=== PATIENT | male | born 1990 | race Caucasian/White ===

== ENCOUNTER 2020-07-21 20:23 | Emergency (ER) | payer SELFPAY ==
[~2020-07-21] VITALS: Ht 170.2 cm; Wt 78.0 kg
[2020-07-21] MEDS ORDERED: SODIUM CHLORIDE 0.9% 1,000 ML IV ONE (21:45)
[2020-07-21] MEDS ORDERED: LORAZEPAM 2MG/ML CPJ IV ONE (21:45)
[2020-07-21] MEDS ORDERED: HALOPERIDOL LACTATE 5MG/ML VIAL IM ONE (22:45)
[2020-07-21] MEDS ORDERED: DIPHENHYDRAMINE 50MG/ML VIAL IM PRN (22:45)
[2020-07-22] VITALS: BP 140/72
[2020-07-22 00:37] LABS: CLARITY URINE CLEAR (CLEAR); COLOR URINE YELLOW (YELLOW); KETONES URINE NEGATIVE (NEGATIVE); LEUKOCYTE ESTERASE URINE 1+ (NEGATIVE); NITRITE URINE POSITIVE (NEGATIVE); OCCULT BLOOD URINE TRACE (NEGATIVE); PH URINE 5.5 (4.5-8.0); PROTEIN URINE TRACE (NEGATIVE); SPECIFIC GRAVITY URINE 1.016 (1.005-1.030); UROBILINOGEN URINE 0.2 E.U./dL (0.2-1.0)
[2020-07-22 00:49] LABS: *COCAINE SCREEN URINE NEGATIVE (NEGATIVE); METHADONE URINE SCREEN NEGATIVE (NEGATIVE)
[2020-07-22 00:51] LABS: *AMPHETAMINES SCREEN URINE PRESUMTIVE POSITIVE (NEGATIVE); *BARBITURATES SCREEN URINE NEGATIVE (NEGATIVE); *BENZODIAZEPINES SCREEN URINE NEGATIVE (NEGATIVE); CANNABINOID URINE SCREEN PRESUMTIVE POSITIVE (NEGATIVE); OPIATES URINE SCREEN NEGATIVE (NEGATIVE); PHENCYCLIDINE URINE SCREEN NEGATIVE (NEGATIVE)
== END 2020-07-22 00:25 | disposition home or self-care (01) ==
LOC: EDBD 20:30 → ER 20:30
DX: F15.129 Other stimulant abuse with intoxication, unspecified (principal); F16.129 Hallucinogen abuse with intoxication, unspecified; F12.129 Cannabis abuse with intoxication, unspecified; R45.1 Restlessness and agitation; F91.8 Other conduct disorders; Z78.1 Physical restraint status
CPT/HCPCS: 80305; 81003; 87077; 87086; 87186; 93005; 96361; 96372; 96374; 99284; J1200; J1630; J2060; J7030; Z7610